=== PATIENT | female | born 1945 | race Caucasian/White ===

== ENCOUNTER 2021-07-15 08:58 | Day surgery (SDC) | payer OTHER ==
--- NOTE | 2021-07-13 07:28 | EKG ---
Test Date: 2021-07-11 Test Time: 12:50:04 Rug Inspector: FLORESITA MEASUREMENT RESULTS: Intervals: Rate: 67 WI: 166 QRSD: 72 QT: 424 QTc: 448 Cameron: P: 81 WI: 166 QRS: 64 T: 91 INTERPRETIVE STATEMENTS: Normal sinus rhythm Normal ECG No previous ECG available for comparison Electronically Signed On 07-13-21 07:23:02 CDT by Ehsan Azar
[2021-07-15] MEDS ORDERED: Ringers Lactate 1,000 ML IV ONE (09:13)
[2021-07-15] MEDS: OXYMETAZOLINE HCL 0.05% 15ML NAS ONE ×5 (09:15→11:15)
[2021-07-15] MEDS ORDERED: EPINEPHRINE/PF 1 MG/ML AMP ONE ×2 (09:39→11:05)
[2021-07-15] MEDS ORDERED: OXYMETAZOLINE HCL 0.05% 15ML NAS ONE ×2 (09:39→09:53)
[2021-07-15] MEDS ORDERED: NA CHLORIDE 0.9% 500 ML ONE (09:39)
[2021-07-15] MEDS ORDERED: FENTANYL CITR 100 MCG/2 ML ONE ×2 (09:51→13:23)
[2021-07-15] MEDS ORDERED: propofoL 200 MG/20 ML VIAL IV ONE (09:51)
[2021-07-15] MEDS ORDERED: LIDOCAINE 2% MPF 5 ML VIAL ONE (09:52)
[2021-07-15] MEDS ORDERED: MIDAZOLAM HCL 2 MG/2 ML INJ ONE (09:52)
[2021-07-15] MEDS ORDERED: ONDANSETRON 4 MG/2 ML VIAL ONE (09:53)
[2021-07-15] MEDS ORDERED: ROCURONIUM 50 MG/5 ML VIAL IV ONE (09:55)
[2021-07-15] MEDS: LIDOCAINE 1% W/EPI 1:100,000 10 ML VIAL ONE ×2 (10:31→11:50)
[2021-07-15] MEDS ORDERED: EPHEDRINE SULF 50 MG/ML VIAL ONE (12:51)
[2021-07-15] MEDS: Ringers Lactate 1,000 ML IV ONE ×3 (13:25→13:56)
[2021-07-15] MEDS ORDERED: GLYCOPYRROLATE 0.2 MG/ML SYR ONE (14:13)
[2021-07-15] MEDS ORDERED: NEOSTIGMINE 1 MG/ML -5 ML ONE (14:21)
--- NOTE | 2021-07-15 14:37 | P.OP ---
Date of Service: 07/15/21 Preoperative Diagnosis: [Chronic maxillary sinusitis] [, chronic ethmoid sinusitis] [, chronic frontal sinusitis] [, chronic sphenoid sinusitis] [, septal deviation], vallecular cyst Postoperative diagnosis: Same, nasal polyps Procedure: Direct laryngoscopy with telescope and removal of vallecular cyst. Septoplasty. Nasal endoscopy with bilateral frontal sinusotomy, bilateral anterior ethmoidectomy, bilateral maxillary antrostomy, left sphenoidotomy. Surgeon: Diana Oleary Viscose Cellar Charge Hand: None Indication for procedure: The patient presented to the ENT clinic with chronic cough and an incidental finding of vallecular lesion during her GI endoscopy with dilation. The patient reported she normally had significant improvement with her chronic cough following GI dilation but failed to do so with this episode. We discussed the role of the vallecular cysts as a cause of her cough. We also discussed gastroesophageal reflux with laryngeal reflux and chronic sinusitis. She was treated with maximal medical therapy for both of these conditions but failed to improve. A posttreatment CT scan demonstrated mucosal thickening and opacification within the sinuses. The risks, benefits, and alternatives to surgical procedure were discussed with the patient and/or family and they agreed to proceed. 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 Severe right-sided septal deviation. Polypoid mucosal swelling with limited mature sinus polyps IV Fluids: Crystalloid, see anesthesia record Implants/Packing: Propel contour steroid eluting stent to the right and left frontal recess, propel steroid eluding stent to the right ethmoid. Positive step dissolvable sinus dressing to the bilateral ethmoid cavity. Bilateral Schulte splints to the nasal cavity. Estimated Blood Loss: 30 mL Complications: [none] Description of procedure in detail: The patient was brought to the operating room. They were placed under general anesthesia via oral endotracheal tube. A shoulder roll was placed and the neck was extended. A tooth guard was placed. The Juan laryngoscope was used to perform a direct laryngoscopy. After placed in suspension photodocumentation using a 15 degree rigid telescope was obtained of the medium sized vallecular cyst. The wall of the cyst was grasped with a laryngeal alligator. A straight, left, and right angled laryngeal scissors were used to incise the mucosa around the base of the cyst until it was removed in its entirety. A Ray-Eufemia was packed into the vallecula to aid in hemostasis. After several minutes this was removed and the area was reexamined. There was a smaller adjacent cyst within the left aspect of the vallecula that was removed in a similar fashion using laryngeal scissors with laryngeal alligator forceps. After removal of this second cyst a Ray-Eufemia was again packed into the vallecula. The Juan was briefly removed. After several minutes the Juan was replaced the packing was removed the area was inspected and it appeared hemostatic. This portion of the procedure was concluded. Then, the head of bed was turned 90 degrees. The nasal hairs were trimmed. The nasal cavity was examined with the nasal speculum and headlight with the following findings: Severe right bony septal deviation with right septal spur and deviation of the caudal aspect of the cartilaginous septum in to the left vestibule. The nasal cavity was packed with Afrin-soaked pledgets in preparation for the procedure. The patient was draped in a standard fashion for nasal surgery. [Based on the surgical plan and preoperative findings, intraoperative CT navigation was required. The preoperative CT scan was loaded into the [employer] device. The registration dongle was applied with adhesive to the patient's forehead. The electromagnetic device was secured to the operating room bed and evaluation to limit interference was confirmed. The registration handpiece was used to perform patient registration in accordance with molecular biology professor's instructions including tracing over the course of the external nose and bilateral forehead and cheeks. Accuracy of the registration was confirmed with [id number] matching at the base of the columella, the radix, and the bilateral medial and lateral canthi. Accuracy was felt to be very good.] A 0 degree endoscope was then used to perform a nasal endoscopy with notable findings of polyp within the left middle meatus with very limited view of the right middle meatus due to the severity of the septal deviation. Photo documentation was obtained. A 0 degree endoscope was used to perform a left nasal endoscopy. The uncinate process was removed using a backbiter and 90 degree Blakesley. The middle meatus was packed with Afrin-soaked pledgets. A 30 and 60 degree rigid endoscope were then used for better visualization of the maxillary antrostomy. Refinements were remade using the 90 degree Blakesley. Several moderate sized polyps were removed from the maxillary sinus. There was no significant infection or pus noted. The middle meatus was packed with Afrin-soaked p ledgets. The 0, 30, 70 rigid endoscopes were used to perform the left anterior ethmoidectomy. A curette was used to divide the ethmoid bulla and bony fragments along with polypoid mucosa and small mature polyps were removed from the ethmoid cavity. During dissection the Precision pointer was used to aid in identification of critical structures including the lamina and the skull base. The balloon sinuplasty device was used to dilate and aid in dissection and fragmentation of bony fragments within the frontal recess. After dilation, a small front to back and side to side giraffe forceps were used to remove bony fragments and polypoid edema from the left frontal recess. Afrin-soaked pledgets were intermittently placed to aid in hemostasis. After adequate dissection of the left anterior ethmoid and frontal sinuses, a propel contour was placed under endoscopic guidance into the frontal recess. The 0 degree endoscope, straight and short curved suctions and precision pointer were used to navigate into the left sphenoid. The sphenoid was forcefully irrigated with several aliquots of sterile saline with return of thick white mucoid secretions. The sphenoid opening was carefully examined and there was no evidence of significantly abnormal mucosal changes, no significant polypoid changes were noted in this region. No biopsies were taken from this area. The ethmoid cavity was packed with Afrin-soaked pledgets and the endoscopic instruments were set aside in preparation for the septoplasty. A headlight and nasal speculum was used to examine the nose. The septum was injected with 1% lidocaine with epinephrine. A left hemitransfixion incision was made through the mucosa and a Gianluca elevator was used to elevate the mucoperichondrial periosteal flaps. Care was taken particularly over the right side to avoid damage to the mucosa while elevating over the septal spur. Once the flaps were adequate Jj Judy call the caudal elevator was used to incise through the cartilaginous septum and a portion of it was removed taking care to leave an adequate caudal and cranial strut. The Julián forceps were used to remove the cartilaginous fragments. The Wyman rongeurs were then used to carefully remove the deviated portions of the bony septum. The right and left nasal cavities were examined to ensure adequate correction of the septal deviation. Once the septum was corrected, attention was returned to the right nasal cavity and preparation for sinus surgery. A 0 degree endoscope was used to perform a right nasal endoscopy with significant improvement in the nasal airway noted. The middle turbinate was medialized using a [place] elevator and the uncinate process was removed using a backbiter and 90 degree Blakesley. Some polypoid tissue was noted within the middle meatus and the antrostomy which was judiciously removed. Afrin-soaked pledgets were packed into the middle meatus to aid in hemostasis. The 0, 30, and 70 degree rigid endoscopes were then used in conjunction with performance of the anterior ethmoidectomy and frontal sinusotomy. The polyps and bony ethmoid partitions were carefully divided and removed using a straight, 45, and 90 degree Blakesley. The precision pointer was used during dissection to aid in identification of the lamina and the skull base. No specific injury to these areas was identified through the course of the procedure. The precision pointer and balloon device was then used to dissect and dilate the frontal recess. Large, small front to back and side to side giraffe forceps were used to remove bony partitions and inflamed mucosa from the frontal recess. After adequate dissection and packing with Afrin soaked pledgets to obtain hemostasis, the pledgets were removed and a propel contour steroid eluding stent was placed under endoscopic guidance into the frontal recess. Attention was turned to the nasal cavity. The intraseptal tissues were carefully suctioned and examined there was no evidence of significant bleeding. The hemitransfixion incision was closed in a simple running fashion using resorbable suture. The septal flaps were approximated in a quilting fashion using a short Brody needle on resorbable suture. The endoscope and endoscopic instruments were then used to place a propel steroid eluding stent into the right ethmoid cavity followed by dissolvable Posi-sep sinus dressing into the bilateral ethmoid cavities. The dissolvable dressing was thoroughly irrigated with sterile saline. The nasopharynx and nasal cavities were reexamined for evaluation of bleeding which did not appear to be clinically significant. There was a small laceration of the right mucosal septum resulting from removal of the septal spur. The nasal cavity was then reexamined and decision was made to place Schulte splints in order to support the septum during early healing period and to prevent mucosal adhesions between the inferior septum and the right inferior turbinate. The Schulte splints were secured to the anterior septum using a 4-0 nylon suture. At the conclusion of the procedure, all pledget counts were confirmed correct. The patient was returned to care of anesthesia for awakening extubation in the operating room which proceeded without difficulty. The patient was transported to the recovery room and will be discharged home later today in the care of their family. The patient is given written and verbal instructions regarding the importance of saline irrigations and nasal precautions.
[2021-07-15] MEDS: HYDRALAZINE HCL 20 MG/ML VIAL ONE ×2 (14:51→15:15)
[2021-07-15] MEDS: HYDROMORPHONE HCL 1 MG/ML INJ ONE ×2 (15:11→15:22)
[2021-07-15] MEDS ORDERED: TRAMADOL HCL 50 MG TAB ONE (16:02)
[2021-07-15 16:17] VITALS: BP 125/44; TEMP 97.5; O2SAT 94
== END 2021-07-15 16:40 | disposition home or self-care (01) ==
LOC: OR 08:58
PROVIDERS: ATTEND Otolaryngology
PROC: 099Q8ZZ Drainage of Right Maxillary Sinus, Via Natural or Artificial Opening Endoscopic (ICD-10-PCS; 2021-07-15)
PROC: 0CBR8ZZ Excision of Epiglottis, Via Natural or Artificial Opening Endoscopic (ICD-10-PCS; 2021-07-15)
PROC: 099R8ZZ Drainage of Left Maxillary Sinus, Via Natural or Artificial Opening Endoscopic (ICD-10-PCS; principal; 2021-07-15 10:15)
DX: J32.0 Chronic maxillary sinusitis (principal); J32.1 Chronic frontal sinusitis; J32.3 Chronic sphenoidal sinusitis; J32.2 Chronic ethmoidal sinusitis; D14.1 Benign neoplasm of larynx; R03.0 Elevated blood-pressure reading, without diagnosis of hypertension; Z20.822 Contact with and (suspected) exposure to COVID-19; J33.9 Nasal polyp, unspecified
CPT/HCPCS: 93005; 88305; 31276; 31254; 31256; 31287; 31541; U0002; J0360; J2704; J2250; J3010 ×2; J1170; J2710; J7120 ×2; J7040; J2405; 88304; 88311; J0171

== ENCOUNTER → 2023-07-24 | Day surgery (SDC) | payer OTHER ==
--- NOTE | 2023-07-24 12:37 | RAD REPORT ---
EXAM DESCRIPTION: US - Breast Core BX w/US Guidance - 07/24/2023 9:18 am CLINICAL HISTORY: ICD R 92.8 COMPARISON: ultrasound July 04, 2023 TECHNIQUE: The risks, benefits alternatives to the procedure were explained to the patient and infor med consent obtained. Skin, subcutaneous and breast tissues anesthetized with lidocaine. Under sonographic guidance, three 14 gauge vacuum assisted core biopsies of the mass within the retro areolar region of left breast obtained. 2 centimeter specimens taken. Tissue given to pathology. Subsequently a localizing clip was placed into the mass. Patient experienced no immediate complication IMPRESSION: Vacuum assisted core biopsies of the left breast mass
== END ==
LOC: DS 09:00
PROVIDERS: ATTEND Internal Medicine
PROC: 0HBU3ZX Excision of Left Breast, Percutaneous Approach, Diagnostic (ICD-10-PCS; principal; 2023-07-24)
DX: C50.012 Malignant neoplasm of nipple and areola, left female breast (principal); Z17.0 Estrogen receptor positive status [ER+]
CPT/HCPCS: 19083; 88304; 88305

== ENCOUNTER 2023-09-02 11:11 | Emergency (ER) | payer OTHER ==
[2023-09-02] MEDS ORDERED: DIPHENHYDRAMINE 50 MG/ML VIAL ONE (11:47)
[2023-09-02] MEDS ORDERED: KETOROLAC 30 MG/ML INJ ONE (11:47)
[2023-09-02] MEDS ORDERED: NA CHLORIDE 0.9% 500 ML ONE (11:48)
[2023-09-02] MEDS ORDERED: NA CHLORIDE 0.9% 100 ML ONE (11:48)
[2023-09-02] MEDS ORDERED: CEFAZOLIN SODIUM 1 GM/VIAL ONE (11:48)
[2023-09-02 12:23] LABS: Albumin 3.4 g/dL (3.4-5.0); Albumin/Globulin Ratio 0.8 (1.1-1.8); Anion Gap 5.3 mEq/L (5.0-15.0); Bilirubin Total 0.5 mg/dL (0.2-1.0); Globulin 4.2 g/dL (2.3-3.5); Potassium 3.3 mEq/L (3.5-5.1); Protein, Total 7.6 g/dL (6.4-8.2)
[2023-09-02] MEDS ORDERED: POTASSIUM 25 MEQ EFFERV TAB ONE (12:54)
--- NOTE | 2023-09-02 13:10 | RAD REPORT ---
EXAM DESCRIPTION: US - UPPER EXTREMITY VENOUS UNILATE - 09/02/2023 12:56 pm CLINICAL HISTORY: Right upper extremity swelling COMPARISON: None. FINDINGS: The right internal jugular, subclavian, brachial, axillary, cephalic, basilic, radial and ulnar veins demonstrate phasic signal. The veins are generally compressible. Doppler demonstrates good flow Grayscale, color and spectral analysis performed on all vessels IMPRESSION: No evidence of thrombus involving the right upper extremity
[2023-09-02 13:11] LABS: Absolute Basophils 0.1 K/uL (0-0.5); Absolute Eosinophils 0.4 K/uL (0-0.5); Absolute Lymphocytes (CBC) 2.5 K/uL (0.7-4.9); Absolute Monocytes 0.8 K/uL (0.1-1.3); Absolute Neutrophil 6.2 K/uL (1.8-8.0); Basophils % 0.9 % (0-1.3); Eosinophils % 3.7 % (0-4.4); Hematocrit 39.7 % (36.0-45.0); Hemoglobin 13.2 g/dL (12.0-15.0); MCH 30.2 pg (27.0-35.0); MCHC 33.2 g/dL (32.0-36.0); Monocytes % 8.3 % (3.3-12.3); Neutrophils % 62.1 % (41.7-73.7); Platelets 285 thou/uL (152-406); RBC Red Blood Cell Count 4.36 M/uL (3.86-4.86); Red Cell Distribution Width 13.8 % (12.1-15.2)
--- NOTE | 2023-09-02 13:14 | EDPHYS ---
Physician Documentation [facility] Name: Danica Portillo Age: 77 yrs Sex: Female : 1945 Arrival Date: 09/02/2023 Time: 11:11 Bed 6 Private MD: Ian Sanchez V ED Physician Luis Angel Gamboa Historical: - Allergies: 09/01 11:34 No Known Allergies; ss - Home Meds: 11:34 losartan potassium 25 mg [Active]; furosemide 20 mg Oral tablet 1 tab [Active]; CoQ-10 ss oral [Active]; - PMHx: 11:34 Hypertensive disorder; Heart murmur; ss - PSHx: 11:34 back; foot; cataracts; L lumpectomy; ss - Immunization history:: Client reports receiving the 2nd dose of the Covid vaccine. - Infectious Disease History:: Denies. - Social history:: Smoking status: Patient denies any tobacco usage or history of. - Family history:: not pertinent. ROS: 12:01 Constitutional: Negative for fever, chills, and weight loss, Eyes: Negative for injury, digna pain, redness, and discharge, ENT: Negative for injury, pain, and discharge, Neck: Negative for injury, pain, and swelling, Cardiovascular: Negative for chest pain, palpitations, and edema, Respiratory: Negative for shortness of breath, cough, wheezing, and pleuritic chest pain, Abdomen/GI: Negative for abdominal pain, nausea, vomiting, diarrhea, and constipation, Back: Negative for injury and pain, : Negative for injury, bleeding, discharge, and swelling, Skin: Negative for injury, rash, and discoloration, Neuro: Negative for headache, weakness, numbness, tingling, and seizure, Psych: Negative for depression, anxiety, suicide ideation, homicidal ideation, and hallucinations, Allergy/Immunology: Negative for hives, rash, and allergies, Endocrine: Negative for neck swelling, polydipsia, polyuria, polyphagia, and marked weight changes, Hematologic/Lymphatic: Negative for swollen nodes, abnormal bleeding, and unusual bruising, 12:01 MS/extremity: Positive for erythema, pain, swelling, tenderness, of the right arm, Exam: 12:01 Constitutional: This is a well developed, well nourished patient who is awake, alert, digna and in no acute distress. Head/Face: Normocephalic, atraumatic. Eyes: Pupils equal round and reactive to light, extra-ocular motions intact. Lids and lashes normal. Conjunctiva and sclera are non-icteric and not injected. Cornea within normal limits. Periorbital areas with no swelling, redness, or edema. ENT: Nares patent. No nasal discharge, no septal abnormalities noted. Tympanic membranes are normal and external auditory canals are clear. Oropharynx with no redness, swelling, or masses, exudates, or evidence of obstruction, uvula midline. Mucous membranes moist. Neck: Trachea midline, no thyromegaly or masses palpated, and no cervical lymphadenopathy. Supple, full range of motion without nuchal rigidity, or vertebral point tenderness. No Meningismus. Chest/axilla: Normal chest wall appearance and motion. Nontender with no deformity. No lesions are appreciated. Cardiovascular: Regular rate and rhythm with a normal S1 and S2. No gallops, murmurs, or rubs. Normal PMI, no JVD. No pulse deficits. Respiratory: Lungs have equal breath sounds bilaterally, clear to auscultation and percussion. No rales, rhonchi or wheezes noted. No increased work of breathing, no retractions or nasal flaring. Abdomen/GI: Soft, non-tender, with normal bowel sounds. No distension or tympany. No guarding or rebound. No evidence of tenderness throughout. Back: No spinal tenderness. No costovertebral tenderness. Full range of motion. Skin: Warm, dry with normal turgor. Normal color with no rashes, no lesions, and no evidence of cellulitis. Neuro: Awake and alert, GCS 15, oriented to person, place, time, and situation. Cranial nerves II-XII grossly intact. Motor strength 5/5 in all extremities. Sensory grossly intact. Cerebellar exam normal. Normal gait. Psych: Awake, alert, with orientation to person, place and time. Behavior, mood, and affect are within normal limits. 12:01 Musculoskeletal/extremity: Extremities: grossly normal except: decreased ROM, erythema, pain, ROM: full active range of motion, full passive range of motion, Circulation is intact in all extremities. Compartment Syndrome exam of affected extremity: is normal. Vital Signs: 11:20 BP 154 / 89; Pulse 73; Resp 16; Temp 98.1(TE); Pulse Ox 98% ; Weight 78.47 kg; Height 5 ss ft. 5 in. ; Pain 0/10; 13:17 BP 110 / 67; Pulse 70; Resp 16; Temp 98(TE); Pulse Ox 100% on R/A; Pain 0/10; ss 11:20 Body Mass Index 28.79 (78.47 kg, 165.1 cm) ss 11:20 Pain Scale: Adult ss 13:17 Pain Scale: Adult ss MDM: 11:21 Patient medically screened. [facility] 12:09 Differential diagnosis: contusion, tendonitis. Data reviewed: vital signs, nurses [facility] notes, lab test result(s), radiologic studies, doppler. Consideration of Admission/Observation Escalation of care including admission/observation considered. I considered the following discharge prescriptions or medication management in the emergency department Medications were administered in the Emergency Department. See MAR. Independent interpretation of the following test(s) in the Emergency Department Radiology Department Ultrasound: My interpretation is usg /doppler neg. Test considered but Not performed: CT: no ct pe. Historians other than the Patient: Family Member: family well informed. Care significantly affected by the following chronic conditions: Hypertension, Cancer. Counseling: I had a detailed discussion with the patient and/or guardian regarding the historical points, exam findings, and any diagnostic results supporting the discharge/admit diagnosis, lab results, radiology results, the need for outpatient follow up, for definitive care, a family practitioner. 09/01 11:34 Order name: CBC with Diff [facility] 09/01 11:34 Order name: Comprehensive Metabolic Panel; Complete Time: 12:44 digna 09/01 11:48 Order name: UPPER EXTREMITY VENOUS UNILATE; Complete Time: 13:13 EDMS 09/01 12:09 Order name: Misc. Order: recollect lavender top; Complete Time: 13:11 la1 09/01 12:45 Order name: PO challenge: juice; Complete Time: 12:51 [facility] Administered Medications: 12:10 Drug: diphenhydrAMINE IVP 25 mg IVP once Route: IVP; Site: left antecubital; ss 13:00 Follow up: Response: No adverse reaction ss 12:11 Drug: ceFAZolin IVPB 1 grams IVPB once Route: IVPB; Site: left antecubital; ss 12:45 Follow up: IV Status: Completed infusion; IV Intake: 100ml ss 12:11 Not Given (Patient Refused): [id number] mg IVP once ss 12:12 Drug: NS 0.9% IV 500 ml IV at bolus once Route: IV; Rate: bolus; Site: left antecubital;ss 13:15 Follow up: IV Status: Completed infusion; IV Intake: 100ml ss 12:14 Not Given (Patient Refused): [id number] mg IVP once ss 13:01 Drug: Potassium PO Effervescent Tablet 25 mEq PO once; dissolve in 4 ounces of water or ss juice Route: PO; 13:10 Follow up: Response: No adverse reaction ss Disposition Summary: 09/02/23 13:13 Discharge Ordered Notes: Location: Home [facility] Problem: new digna Symptoms: have improved digna Condition: Stable digna Diagnosis - Cellulitis of unspecified part of limb digna - Phlebitis and thrombophlebitis of unspecified site digna - Hypokalemia digna Followup: [facility] - With: Ian Sanchez MD - When: 2 - 3 days - Reason: Recheck today's complaints, Continuance of care, Re-evaluation by your physician Discharge Instructions: - Discharge Summary Sheet [facility] - Potassium Content of Foods digna - Phlebitis digna - Cellulitis, Adult, [id number] digna - Hypokalemia digna - Thrombophlebitis [facility] Forms: - Medication Reconciliation Form [facility] - Antibiotic Education digna - Prescription Opioid Use [facility] - Patient Portal Instructions [facility] - Leadership Thank You Letter [facility] Prescriptions: - Cephalexin 500 mg Oral capsule - take 1 capsule ORAL route every 6 hours for 7 days; 28 capsule; Refills: 0, [facility] Product Selection Permitted - Hydroxyzine HCl 25 mg Oral Tablet - take 1 tablet ORAL route every 6 hours As needed; 30 tablet; Refills: 0, [facility] Product Selection Permitted - Pepcid 20 mg Oral tablet - take 1 tablet ORAL route every 12 hours for 21 days; 42 tablet; Refills: 0, [facility] Product Selection Permitted - Motrin IB 200 mg Oral tablet - take 1 tablet ORAL route every 6 hours As needed as needed with food; 30 digna tablet; Refills: 0, Product Selection Permitted Signatures: Dispatcher [employer] Luis Angel Slade MD MD cha Blanchard, Shelby, MAUREEN RN ss Jj Fagan, MACHINE BANDER AND CELLOPHANER HELPER-C MACHINE BANDER AND CELLOPHANER HELPER-Cla1 Corrections: (The following items were deleted from the chart) 11:34 11:34 Extremity Venous [email or web address] ordered. EDMS EDMS 11:42 11:34 PSHx: Losartan potassium 25 mg; ss ss
--- NOTE | 2023-09-02 13:14 | ER ---
Nurse's Notes [facility] Name: Danica Portillo Age: 77 yrs Sex: Female : 1945 Arrival Date: 09/02/2023 Time: 11:11 Bed 6 Private MD: Ian Sanchez V Diagnosis: Cellulitis of unspecified part of limb;Phlebitis and thrombophlebitis of unspecified site;Hypokalemia Presentation: 09/01 11:20 Chief complaint: Patient states: Had a L lumpectomy on Sunday, and IV placed to R arm, ss but is now having swelling to some parts of R arm. Patient's doctor told her to come to ED for evaluation of DVT. 11:20 Coronavirus screen: Client denies travel out of the [place] in the last 14 days. Ebola ss Screen: Patient denies exposure to infectious person. Patient denies travel to an Ebola-affected area in the 21 days before illness onset. Initial Sepsis Screen: Does the patient meet any 2 criteria? No. Patient's initial sepsis screen is negative. Does the patient have a suspected source of infection? No. Patient's initial sepsis screen is negative. Risk Assessment: Do you want to hurt yourself or someone else? Patient reports no desire to harm self or others. Onset of symptoms was August 31, 2023. 11:20 Method Of Arrival: Ambulatory ss 11:20 Acuity: YUVAL 3 ss Historical: - Allergies: 11:34 No Known Allergies; ss - Home Meds: 11:34 losartan potassium 25 mg [Active]; furosemide 20 mg Oral tablet 1 tab [Active]; CoQ-10 ss oral [Active]; - PMHx: 11:34 Hypertensive disorder; Heart murmur; ss - PSHx: 11:34 back; foot; cataracts; L lumpectomy; ss - Immunization history:: Client reports receiving the 2nd dose of the Covid vaccine. - Infectious Disease History:: Denies. - Social history:: Smoking status: Patient denies any tobacco usage or history of. - Family history:: not pertinent. Screenin:42 [facility] ED Fall Risk Assessment (Adult) Confusion or Disorientation No (0 pts) ss Intoxicated or Sedated No (0 pts) Impaired Gait No (0 pts) Mobility Assist Device Used No (0 pt) Altered Elimination No (0 pt) Score/Fall Risk Level 0 - 2 = Low Risk Maintained a safe environment. Abuse screen: Denies threats or abuse. Denies injuries from another. Nutritional screening: No deficits noted. Tuberculosis screening: Never had TB. Assessment: 11:42 General: Appears in no apparent distress. comfortable, Behavior is calm, cooperative. ss Pain: Denies pain. Neuro: Level of Consciousness is awake, alert, obeys commands, Oriented to person, place, time, situation. Cardiovascular: Pulses are palpable in right radial artery and left radial artery. Respiratory: Airway is patent Respiratory effort is even, unlabored, Respiratory pattern is regular, symmetrical. GI: Patient currently denies diarrhea, nausea, vomiting. Derm: Skin is intact, is healthy with good turgor, Skin is dry, Skin is pink, warm \T\ dry. normal. Musculoskeletal: Circulation, motion, and sensation intact. Range of motion: intact in all extremities, Swelling present in right arm. 12:16 Reassessment: US at bedside. ss 13:17 Reassessment: Patient appears in no apparent distress at this time. Patient and/or ss family updated on plan of care and expected duration. Pain level reassessed. Patient denies pain at this time. Vital Signs: 11:20 BP 154 / 89; Pulse 73; Resp 16; Temp 98.1(TE); Pulse Ox 98% ; Weight 78.47 kg; Height 5 ss ft. 5 in. ; Pain 0/10; 13:17 BP 110 / 67; Pulse 70; Resp 16; Temp 98(TE); Pulse Ox 100% on R/A; Pain 0/10; ss 11:20 Body Mass Index 28.79 (78.47 kg, 165.1 cm) ss 11:20 Pain Scale: Adult ss 13:17 Pain Scale: Adult ss ED Course: 11:12 Patient arrived in ED. rg4 11:13 Ian Sanchez MD is Private Physician. rg4 11:13 Arm band placed on Patient placed in an exam room, on a stretcher. ll1 11:21 Luis Angel Gamboa MD is Attending Physician. digna 11:34 Triage completed. ss 11:42 Patient has correct armband on for positive identification. Placed in gown. Bed in low ss position. Call light in reach. Side rails up X 1. Adult w/ patient. 11:43 Angelica Nuñez, RN is Primary Nurse. ss 12:00 Inserted saline lock: 22 gauge in left antecubital area, using aseptic technique. Blood ss collected. 12:58 UPPER EXTREMITY VENOUS UNILATE In Process Unspecified. EDUT 13:13 Ian Sanchez MD is Referral Physician. [facility] 13:31 No provider procedures requiring assistance completed. IV discontinued, intact, ss bleeding controlled, No redness/swelling at site. Pressure dressing applied. Administered Medications: 12:10 Drug: diphenhydrAMINE IVP 25 mg IVP once Route: IVP; Site: left antecubital; ss 13:00 Follow up: Response: No adverse reaction ss 12:11 Drug: ceFAZolin IVPB 1 grams IVPB once Route: IVPB; Site: left antecubital; ss 12:45 Follow up: IV Status: Completed infusion; IV Intake: 100ml ss 12:11 Not Given (Patient Refused): [id number] mg IVP once ss 12:12 Drug: NS 0.9% IV 500 ml IV at bolus once Route: IV; Rate: bolus; Site: left antecubital;ss 13:15 Follow up: IV Status: Completed infusion; IV Intake: 100ml ss 12:14 Not Given (Patient Refused): mg IVP once ss 13:01 Drug: Potassium PO Effervescent Tablet 25 mEq PO once; dissolve in 4 ounces of water or ss juice Route: PO; 13:10 Follow up: Response: No adverse reaction ss Medication: 11:42 VIS not applicable for this client. ss Intake: 12:45 IV: 100ml; Total: 100ml. ss 13:15 IV: 100ml; Total: 200ml. ss Outcome: 12:00 Discharged to home ambulatory, with family, ss 12:00 Condition: good 12:00 Discharge instructions given to patient, family, Instructed on discharge instructions, follow up and referral plans. medication usage, Demonstrated understanding of instructions, follow-up care, medications, Prescriptions given X 4, 13:13 Discharge ordered by . [facility] 13:33 Patient left the ED. ss Signatures: Dispatcher [employer] Luis Angel Slade MD MD cha Blanchard, Shelby, RN RN Kim Garcia rg4 Fernando Ibanez RN RN ll1 Corrections: (The following items were deleted from the chart) 11: 11:34 PSHx: Losartan potassium 25 mg; ss ss 11:45 11:42 Musculoskeletal: Circulation, motion, and sensation intact. Range of motion: ss intact in all extremities, Swelling absent ss
[2023-09-02 13:42] VITALS: BP 110/67; TEMP 98; O2SAT 100
== END 2023-09-02 13:33 | disposition home or self-care (01) ==
LOC: ER 11:11
DX: L03.113 Cellulitis of right upper limb (principal); I80.8 Phlebitis and thrombophlebitis of other sites; E87.6 Hypokalemia; I10 Essential (primary) hypertension
CPT/HCPCS: 96365; 85025; 36415; 80053; 93971; 96375; 99284; J1200; J7040; J0690

== ENCOUNTER 2023-10-29 08:38 | Emergency (ER) | payer OTHER ==
[2023-10-29] MEDS ORDERED: HYDROCODONE/APAP 7.5/325 MG TAB ONE (08:59)
--- NOTE | 2023-10-29 09:25 | RAD REPORT ---
EXAM DESCRIPTION: CT - Thorax Wo Con - 10/29/2023 9:13 am CLINICAL HISTORY: difficulty breathing COMPARISON: No comparisons FINDINGS: Chest Wall: No suspicious thyroid nodules or pathologic lymphadenopathy. Lungs: Several calcified pulmonary nodules. No evidence of either edema or pneumonia. Pleura: No significant effusions or pneumothorax. Mediastinum/marek: No pathologic lymphadenopathy. Small hiatal hernia. Pulmonary arteries/Aorta: Limited evaluation without contrast. The ascending thoracic aorta measures 4 cm and is mildly aneurysmal. Aortic valve calcifications. Heart: No significant pericardial effusion. Normal heart size. Multi-vessel coronary disease. Upper abdomen: Possible hyperdense cyst at the right kidney but is only partially imaged. Cholelithia sis. Bones: Age indeterminate minimally displace right anterolateral fifth rib fracture. Subacute appearin g right anterolateral fourth rib fracture. Bridging osteophytes in the spine. T11 hemangioma. All CT scans are performed using dose optimization technique as appropriate and may include automated exposure control or mA/KV adjustment according to patient size. IMPRESSION: 1. No definite acute findings within the lungs. No evidence of edema or pneumonia. 2. Minimally displaced right anterolateral fifth rib fracture which is age indeterminate. An adjacent rib fracture appears subacute. No pneumothorax.
--- NOTE | 2023-10-29 09:36 | ER ---
Nurse's Notes [facility] Name: Danica Portillo Age: 78 yrs Sex: Female : 1945 Arrival Date: 10/29/2023 Time: 08:38 Bed 2 Private MD: Diagnosis: Fracture of one rib, right side Presentation: 10/28 08:44 Chief complaint: Patient states: fell approximately 1 week ago, fell out in the yard aa5 onto right side of body. Pt c/o right rib cage pain, worse with coughing, worse with taking a deep breath. 08:44 Coronavirus screen: At this time, the client does not indicate any symptoms associated aa5 with coronavirus-19. Ebola Screen: Patient denies travel to an Ebola-affected area in the 21 days before illness onset. Initial Sepsis Screen: Does the patient meet any 2 criteria? No. Patient's initial sepsis screen is negative. Does the patient have a suspected source of infection? No. Patient's initial sepsis screen is negative. Risk Assessment: Do you want to hurt yourself or someone else? Patient reports no desire to harm self or others. Onset of symptoms was September 2023. 08:44 Acuity: YUVAL 3 aa5 08:44 Method Of Arrival: Ambulatory aa5 Triage Assessment: 09:11 Respiratory: the patient has mild shortness of breath. ph Historical: - Allergies: 08:56 No Known Allergies; aa5 - Home Meds: 08:59 Lumigan 0.01 % ophthalmic (eye) drops at bedtime [Active]; losartan potassium (bulk) aa5 25mg miscellaneous powder daily [Active]; furosemide 20 mg Oral tablet once [Active]; ezetimibe 10 mg oral tablet once [Active]; anastrozole 1 mg oral tablet once [Active]; Citracal Oral 200 mg [Active]; CoQ-10 oral once [Active]; Flonase Nasal [Active]; red yeast rice 600 mg oral tablet 2 tabs once [Active]; [place]-3 oral once [Active]; Multivitamin Women 50 Plus oral [Active]; areds 2 daily [Active]; 09:05 Arnuity Ellipta 100 mcg/actuation inhalation Blister, With Inhalation Device [Active]; aa5 - PMHx: 08:56 Heart Murmur; Hypertensive disorder; Breast Cancer; aa5 - PSHx: 08:56 cataracts; L Lumpectomy; tubal ligation; left foot (callus removed); back; cyst removed aa5 from kidney; sinus sx; - Immunization history:: Adult Immunizations unknown. - Infectious Disease History:: Denies. - Social history:: Smoking status: Patient denies any tobacco usage or history of. Screenin:10 [facility] ED Fall Risk Assessment (Adult) History of falling in the last 3 months, ph including since admission Yes- single mechanical fall (1 pt) Confusion or Disorientation No (0 pts) Intoxicated or Sedated No (0 pts) Impaired Gait No (0 pts) Mobility Assist Device Used No (0 pt) Altered Elimination No (0 pt) Score/Fall Risk Level 0 - 2 = Low Risk Oriented to surroundings, Maintained a safe environment, Hourly rounding (assess needs \T\ fall precautionary measures) done. Abuse screen: Denies threats or abuse. Denies injuries from another. Nutritional screening: No deficits noted. Tuberculosis screening: No symptoms or risk factors identified. Assessment: 09:09 General: Appears in no apparent distress. comfortable, well groomed, Behavior is calm, ph cooperative, appropriate for age. Pain: Complains of pain in right tenth rib and right ninth rib. Neuro: Level of Consciousness is awake, alert, obeys commands, Oriented to person, place, time, situation. Cardiovascular: Reports chest pain. Respiratory: Airway is patent Respiratory effort is even, unlabored. Derm: Skin is pink, warm \T\ dry. Musculoskeletal: Circulation, motion, and sensation intact. Range of motion: intact in all extremities. 09:45 Reassessment: Patient appears in no apparent distress at this time. Patient and/or ph family updated on plan of care and expected duration. Pain level reassessed. Patient is alert, oriented x 3, equal unlabored respirations, skin warm/dry/pink. Vital Signs: 08:44 BP 165 / 71; Pulse 72; Resp 14 S; Temp 97.5(TE); Pulse Ox 98% on R/A; aa5 09:48 BP 152 / 78; Pulse 68; Resp 18; Temp 97.5; Pulse Ox 99% on R/A; ph ED Course: 08:44 Patient arrived in ED. mg5 08:44 Hawa Carrero PA-C is PHCP. sb4 08:44 Luis Angel Gamboa MD is Attending Physician. sb4 08:44 Arm band placed on Patient placed in an exam room, on a stretcher. aa5 08:45 Rebekah Davidson, RN is Primary Nurse. ph 08:59 Triage completed. aa5 09:11 Patient has correct armband on for positive identification. Bed in low position. Call ph light in reach. Side rails up X 1. Pulse ox on. NIBP on. Door closed. Noise minimized. Warm blanket given. 09:48 No provider procedures requiring assistance completed. Patient did not have IV access ph during this emergency room visit. Administered Medications: 09:09 Drug: Hydrocodone-Acetaminophen PO (7.5 mg-325 mg) 1 tabs PO once Route: PO; ph 09:49 Follow up: Response: No adverse reaction; Pain is decreased; RASS: Alert and Calm (0) ph Medication: 09:10 VIS not applicable for this client. ph Outcome: 09:35 Discharge ordered by MD. sb4 09:48 Discharged to home ambulatory, with family, ph 09:48 Condition: good 09:48 Discharge instructions given to patient, family, Instructed on discharge instructions, follow up and referral plans. medication usage, Demonstrated understanding of instructions, follow-up care, medications, Prescriptions given X 2, 09:52 Patient left the ED. ph Signatures: Gianna Prado RN RN aa5 Rebekah Davidson, RN RN Hawa aSntillan PA-C PA-C sb4 Debbie Mills mg5 Corrections: (The following items were deleted from the chart) 08:58 08:56 PSHx: back; [place] [id number] 08:58 08:56 PSHx: foot; [place] [id number] 14:52 10:30 Reassessment: Patient appears in no apparent distress at this time. Patient ph and/or family updated on plan of care and expected duration. Pain level reassessed. Patient is alert, oriented x 3, equal unlabored respirations, skin warm/dry/pink. ph
--- NOTE | 2023-10-29 09:36 | EDPHYS ---
Physician Documentation [facility] Name: Danica Portillo Age: 78 yrs Sex: Female : 1945 Arrival Date: 10/29/2023 Time: 08:38 Bed 2 Private MD: NAGI Physician Luis Angel Gamboa HPI: 10/28 08:56 This 78 yrs old Female presents to ER via Unassigned with complaints of Fall Injury, sb4 rib pain. 08:57 Details of fall: The patient fell from an upright position, while walking. Onset: The sb4 symptoms/episode began/occurred 1 week(s) ago. Associated injuries: The patient sustained injury to the chest, specifically the right ninth rib and right tenth rib, pain with breathing, pain with movement. The patient has not experienced similar symptoms in the past. The patient has been recently seen by a physician: the patient's primary care provider. Historical: - Allergies: 08:56 No Known Allergies; aa5 - Home Meds: 08:59 Lumigan 0.01 % ophthalmic (eye) drops at bedtime [Active]; losartan potassium (bulk) aa5 25mg miscellaneous powder daily [Active]; furosemide 20 mg Oral tablet once [Active]; ezetimibe 10 mg oral tablet once [Active]; anastrozole 1 mg oral tablet once [Active]; Citracal Oral 200 mg [Active]; CoQ-10 oral once [Active]; Flonase Nasal [Active]; red yeast rice 600 mg oral tablet 2 tabs once [Active]; [place]-3 oral once [Active]; Multivitamin Women 50 Plus oral [Active]; areds 2 daily [Active]; 09:05 Arnuity Ellipta 100 mcg/actuation inhalation Blister, With Inhalation Device [Active]; aa5 - PMHx: 08:56 Heart Murmur; Hypertensive disorder; Breast Cancer; aa5 - PSHx: 08:56 cataracts; L Lumpectomy; tubal ligation; left foot (callus removed); back; cyst removed aa5 from kidney; sinus sx; - Immunization history:: Adult Immunizations unknown. - Infectious Disease History:: Denies. - Social history:: Smoking status: Patient denies any tobacco usage or history of. ROS: 08:57 Constitutional: Negative for fever, chills, and weight loss, sb4 08:57 MS/extremity: Positive for rib pain, 08:57 All other systems are negative, 08:57 Respiratory: Positive for pleurisy, sb4 Exam: 08:57 Constitutional: This is a well developed, well nourished patient who is awake, alert, sb4 and in no acute distress. Head/Face: Normocephalic, atraumatic. Eyes: Extra-ocular motions intact. Periorbital areas with no swelling, redness, or edema. ENT: Mucous membranes moist. Cardiovascular: Regular rate and rhythm with a normal S1 and S2. Respiratory: Lungs have equal breath sounds bilaterally, clear to auscultation and percussion. No rales, rhonchi or wheezes noted. No increased work of breathing, no retractions or nasal flaring. Abdomen/GI: Soft, non-tender, no distension. Skin: Warm, dry with normal turgor. Normal color with no rashes, no lesions, and no evidence of cellulitis. MS/ Extremity: Pulses equal, no cyanosis. Neurovascular intact. Full, normal range of motion. Neuro: Awake and alert, GCS 15, oriented to person, place, time, and situation. Motor strength 5/5 in all extremities. Sensory grossly intact. 08:57 Chest/axilla: Inspection: normal, Palpation: tenderness, that is mild, of the right tenth rib and right ninth rib, that partially reproduces the patient's complaints, Vital Signs: 08:44 BP 165 / 71; Pulse 72; Resp 14 S; Temp 97.5(TE); Pulse Ox 98% on R/A; aa5 09:48 BP 152 / 78; Pulse 68; Resp 18; Temp 97.5; Pulse Ox 99% on R/A; ph MDM: 08:44 Patient medically screened. sb4 09:34 Data reviewed: vital signs, nurses notes, radiologic studies, and as a result, I will sb4 discharge patient. Historians other than the Patient: Daughter/Son: daughter. Care significantly affected by the following chronic conditions: Hypertension, Cancer. Counseling: I had a detailed discussion with the patient and/or guardian regarding the historical points, exam findings, and any diagnostic results supporting the discharge/admit diagnosis, radiology results, to return to the emergency department if symptoms worsen or persist or if there are any questions or concerns that arise at home. 10/28 09:25 Order name: CT; Complete Time: 09:29 EDMS Administered Medications: 09:09 Drug: Hydrocodone-Acetaminophen PO (7.5 mg-325 mg) 1 tabs PO once Route: PO; ph 09:49 Follow up: Response: No adverse reaction; Pain is decreased; RASS: Alert and Calm (0) ph Disposition Summary: 10/29/23 09:35 Discharge Ordered Notes: Location: Home sb4 Problem: new sb4 Symptoms: are unchanged sb4 Condition: Stable sb4 Diagnosis - Fracture of one rib, right side sb4 Followup: sb4 - With: Emergency Department - When: As needed - Reason: Trouble breathing, Worsening of condition Discharge Instructions: - Discharge Summary Sheet sb4 - How to Use an Incentive Spirometer sb4 - Rib Fracture, [id number] sb4 Forms: - Prescription Opioid Use sb4 - Patient Portal Instructions sb4 - Leadership Thank You Letter sb4 Prescriptions: - acetaminophen-codeine 300-30 mg Oral tablet - take 1 tablet ORAL route every 6 hours as needed for pain; 12 tablet; Refills: sb4 0, Product Selection Permitted - Diclofenac Sodium 75 mg Oral Tablet Sustained Release - take 1 tablet ORAL route 2 times per day; 30 tablet; Refills: 0, Product sb4 Selection Permitted Signatures: Dispatcher [employer] Gianna Gusman RN RN aa5 Rebekah Davidson RN RN Hawa Santillan, PAKimber PAKimber sb4 Corrections: (The following items were deleted from the chart) 08:57 08:57 The patient has not recently seen a physician, sb4 sb4 08:58 08:56 PSHx: back; aa5 aa5 08:58 08:56 PSHx: foot; aa5 aa5
[2023-10-29 10:04] VITALS: BP 152/78; TEMP 97.5; O2SAT 99
== END 2023-10-29 09:52 | disposition home or self-care (01) ==
LOC: ER 08:38
DX: S22.31XA Fracture of one rib, right side, initial encounter for closed fracture (principal); W18.30XA Fall on same level, unspecified, initial encounter
CPT/HCPCS: 71250; 99284